=== PATIENT | male | born 1965 ===

== ENCOUNTER 2019-03-09 01:00 | Inpatient (IN) | payer OTHER ==
[2019-03-09 04:52] VITALS: BMI 43.8
[2019-03-09 05:40] LABS: ABG ALLEN TEST POS; ARTERIAL BLOOD GAS HCO3 18.9 mmol/L (21-28); ARTERIAL BLOOD GAS O2 SAT 99.3 % (95-98); ARTERIAL BLOOD GAS PCO2 35 mm/Hg (35-45); ARTERIAL BLOOD GAS PH 7.31 (7.35-7.45); ARTERIAL BLOOD GAS PO2 129 mm/Hg (80-100); ARTERIAL BLOOD GAS TCO2 18.7 mmol/L (22-28)
[2019-03-09 07:45] LABS: BASO # 0.1 K/uL (0.0-0.2); BASO % 1.8 % (0.0-2.0); EOS # 0.6 K/uL (0.0-0.7); EOS % 7.2 % (0.0-4.0); LYMPH # 1.5 K/uL (1.0-4.3); LYMPH % 18.5 % (20.0-40.0); MEAN CELL VOLUME 84.2 fL (80.0-94.0); MEAN CORPUSCULAR HEMOGLOBIN 27.4 pg (27.0-31.0); MEAN CORPUSCULAR HGB CONC 32.5 g/dL (33.0-37.0); MEAN PLATELET VOLUME 7.3 fL (7.2-11.7); MONO # 0.7 K/uL (0.0-0.8); MONO % 8.6 % (0.0-10.0); NEUT # 5.2 K/uL (1.8-7.0); NEUT % 63.9 % (50.0-75.0); NRBC % 0.1 % (0.0-2.0); RBC 2.38 Mil/uL (4.40-5.90); RED CELL DISTRIBUTION WIDTH 15.5 % (11.5-14.5); WHITE BLOOD COUNT 8.1 K/uL (4.8-10.8)
[2019-03-09 07:46] LABS: HEMOGLOBIN 6.5 g/dL (12.0-18.0)
[2019-03-09 08:08] LABS: INR 1.1
[2019-03-09] MEDS ORDERED: Dextrose 50% SYRINGE Inj (50 ml) IV PRN (08:35)
[2019-03-09] MEDS ORDERED: Glucagon Recombinant 1 mg Inj IM PRN (08:35)
--- NOTE | 2019-03-09 08:40 | CP.PCM.HP ---
History of Present Illness - History of Present Illness History of Present Illness: HOSPITALIST SERVICE 53M PMHx of ESRD, HTN, DM, Depression, Anxiety, presents with a 4 day Hx of Lethargy, weakness and dizziness. Pt is unable to clearly express his symptoms as he is with AMS at this time. Pt states it began gradually and worsened today. He has a L arm AVF but has not received dialysis yet. 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 He states he was taking all his prescribed medica tions as instructed and follows up regularly. Pt denies taking any new medications or any additional doses, came in last night because of worsening symptoms. Pt says he had a previous episode of these symptoms about 2 years ago in Oct, where he was found to have anemia and was transfused 4u, had a colonoscopy, was not found to have any active bleeding, anemia was attributed to his plavix and pletal so he was taken off these medications. ROS: Pos+ Lethargy, Weakness, Dizziness, polypharmacy, ESRD, recent travel/flight, confusion, AMS Neg- CP, SOB, FC, NV, blood in urine/stool, bruising, palpitations, syncope, memory loss, falls/trauma, medication changes PMHx: ESRD, HTN, DM, Depression, Anxiety PSx: AVF L arm FH: Mom DM SocHx: denies ETOH, Drugs, Smoking Allergies: penicillin Home Rx: wellbutrin 300 daily seroquel 300 bid klonopin 2 tid restril 30 hs synthroid 112 cardizem 120 norflex fenofib 160 lasix 80 daily humilin/Lantus PEG 3350 Vit D 50,000 q7 Neurontin 300 Losartan 100 Glimeperide Review of Systems - Review of Systems All systems: reviewed and no additional remarkable complaints except (as per HPI) Meds Allergies/Adverse Reactions: Allergies Allergy/AdvReac Type Severity Reaction Status Date / Time Penicillins Allergy Verified 03/09/19 04:52 Physical Exam - Constitutional Appears: Confused - Head Exam Head Exam: ATRAUMATIC, NORMAL INSPECTION - Eye Exam Eye Exam: EOMI, Normal appearance. absent: Scleral icterus Pupil Exam: NORMAL ACCOMODATION, PERRL - ENT Exam ENT Exam: Mucous Membranes Moist Additional comments: large tongue large neck diameter - Neck Exam Neck exam: Negative for: Lymphadenopathy - Respiratory Exam Respiratory Exam: Clear to Auscultation Bilateral. absent: Rales, Wheezes - Cardiovascular Exam Cardiovascular Exam: +S1, +S2 - GI/Abdominal Exam GI & Abdominal Exam: Soft. absent: Tenderness (large obese) - Extremities Exam Extremities exam: Positive for: pedal edema (+1), pedal pulses present - Neurological Exam Neurological exam: Alert, CN II-XII Intact, Oriented x3 - Psychiatric Exam Psychiatric exam: Normal Affect, Normal Mood - Skin Skin Exam: Normal Color, Warm Results - Vital Signs Recent Vital Signs: Last Vital Signs Temp Pulse 79 03/09/19 04:07 Resp BP Pulse Ox - Labs Result Diagrams: 03/09/19 04:40 03/09/19 04:40 Labs: Laboratory Results - last 24 hr 03/09/19 03/09/19 03/09/19 04:40 04:44 05:27 WBC 8.1 RBC 2.38 L Hgb 6.5 L* Hct 20.1 L MCV 84.2 MCH 27.4 MCHC 32.5 L RDW 15.5 H Plt Count 328 MPV 7.3 Neut % (Auto) 63.9 Lymph % (Auto) 18.5 L [place] % (Auto) 8.6 Eos % (Auto) 7.2 H Baso % (Auto) 1.8 Neut # (Auto) 5.2 Lymph # (Auto) 1.5 [place] # (Auto) 0.7 Eos # (Auto) 0.6 Baso # (Auto) 0.1 PT 12.0 INR 1.1 APTT 36.0 H Puncture Site pCO2 pO2 HCO3 ABG pH ABG Total CO2 ABG O2 Saturation ABG Base Excess Vipul Test ABG Potassium A-a O2 Difference Respiratory Index Sodium Chloride Glucose Lactate Mechanical Rate FiO2 Arterial Blood Potassium Stool Occult Blood Blood Type O POSITIVE Antibody Screen Negative 03/09/19 03/09/19 05:30 07:59 WBC RBC Hgb Hct MCV MCH MCHC RDW Plt Count MPV Neut % (Auto) Lymph % (Auto) [place] % (Auto) Eos % (Auto) Baso % (Auto) Neut # (Auto) Lymph # (Auto) [place] # (Auto) Eos # (Auto) Baso # (Auto) PT INR APTT Puncture Site Rr pCO2 35 pO2 129 H HCO3 18.9 L ABG pH 7.31 L ABG Total CO2 18.7 L ABG O2 Saturation 99.3 H ABG Base Excess -7.8 L Vipul Test Pos ABG Potassium 3.0 L A-a O2 Difference 112.0 Respiratory Index 0.9 Sodium 143.0 Chloride 119.0 H Glucose 88 Lactate 0.3 L Mechanical Rate 12 FiO2 40.0 Arterial Blood Potassium 3.0 L Stool Occult Blood Negative Blood Type Antibody Screen Assessment & Plan - Assessment and Plan (Free Text) Assessment: 53M admitted for acute anemia and lethargy Plan: Symptomatic Anemia 2u PRBCs to be transfused Hg 6.5 f/u CBC Dizziness/Lethargy -f/u CT head -anemia possible cause, transfusin 2 u ESRD Acute on Chronic -Dr Cota consulted Nephro no emergent HD continue with transfusions give lasix 40 at start, IVP Vit D, Procrit, fenofib, fergon f/u electrolytes and iron studies DM -ISS Mod -accuchecks achs -holding home humulin/lantus HTN -Lasix 40 IVP with transfusion -Cardizem 120 po -holding home losartan -monitor Hypothyroidsism -synthroid 112 daily -f/u tsh Obesity -renal diet Neurpathy -gabapentin 100 daily Depression -seroquel -wellbutrin -restoril - holding klonopin PPx -Hep 5000u q12 -Renal Diabetic Diet CK PGY1 d/w Dr Moreno
[2019-03-09] MEDS ORDERED: Ergocalciferol 50,000 Intl Units Cap PO SCH (09:30)
[2019-03-09] MEDS ORDERED: Epoetin Alfa 10,000 unit/ml Dialysis SC SCH (09:30)
[2019-03-09] MEDS ORDERED: POLYETHYLENE GLYCOL 3350 17 GM/Dose PACKET PO SCH (10:00)
[2019-03-09] MEDS ORDERED: Pantoprazole 40 mg EC Tab PO SCH (10:00)
[2019-03-09] MEDS ORDERED: buPROPion 150 mg/24 Hours XL Tab PO SCH (10:00)
--- NOTE | 2019-03-09 10:31 | CT ---
Date of service: 03/09/2019 PROCEDURE: CT HEAD WITHOUT CONTRAST. HISTORY: AMS COMPARISON: TECHNIQUE: Axial computed tomography images were obtained through the head/brain without intravenous contrast. Radiation dose: Total exam DLP = 1160.58 mGy-cm. This CT exam was performed using one or more of the following dose reduction techniques: Automated exposure control, adjustment of the mA and/or kV according to patient size, and/or use of iterative reconstruction technique. FINDINGS: HEMORRHAGE: No intracranial hemorrhage. BRAIN: Cornelius-white matter differentiation is preserved. There is no mass, mass effect or abnormal extra-axial fluid collection. There is no territorial infarction. The midline sagittal structures are normal. VENTRICLES: There is mild age advanced global parenchymal volume loss and proportionate enlargement of the ventricles and cortical sulci. CALVARIUM: There is no calvarial fracture or extracranial soft tissue swelling. PARANASAL SINUSES: There is moderate polypoid mucosal thickening in the left maxillary sinus with aerosolized secretions. There is mild scattered mucoperiosteal thickening in the ethmoid air cells and mild polypoid mucosal thickening in the right maxillary and left sphenoid sinus. MASTOID AIR CELLS: Predominantly clear. OTHER FINDINGS: None. IMPRESSION: No acute intracranial abnormality. Chronic maxillary, sphenoid and ethmoid sinusitis, worse in the left maxillary sinus. Aerosolized secretions in the left maxillary sinus may represent superimposed acute sinusitis in the appropriate clinical setting.
--- NOTE | 2019-03-09 10:35 | RAD ---
Date of service: 03/09/2019 PROCEDURE: CHEST RADIOGRAPH, 1 VIEW HISTORY: r/o pna COMPARISON: None FINDINGS: LUNGS: The right lung is clear. There is opacification of the left lower lobe. PLEURA: No pneumothorax or right pleural effusion. CARDIOVASCULAR: The cardiac silhouette is not well evaluated due to opacification in the left lower lobe. No aortic atherosclerotic calcifications present. OSSEOUS STRUCTURES: Within normal limits for the patient's age. VISUALIZED UPPER ABDOMEN: Normal. OTHER FINDINGS: None. IMPRESSION: Left lower lobe opacity may represent effusion and/or pneumonia. Follow-up after medical management is recommended to ensure complete resolution.
[2019-03-09 11:05] LABS: ARTERIAL BLOOD GAS HCO3 21.2 mmol/L (21-28); ARTERIAL BLOOD GAS PCO2 34 mm/Hg (35-45); ARTERIAL BLOOD GAS PH 7.37 (7.35-7.45); ARTERIAL BLOOD GAS PO2 183 mm/Hg (80-100); ARTERIAL BLOOD GAS TCO2 20.7 mmol/L (22-28)
[2019-03-09 11:06] LABS: ABG ALLEN TEST POS; ARTERIAL BLOOD GAS FIO2 40 %; ARTERIAL BLOOD GAS O2 SAT 98.6 % (95-98)
[2019-03-09 11:17] LABS: BLOOD UREA NITROGEN 64 mg/dL (9-20); GFR NON-AFRICAN AMERICAN 12
[2019-03-09 11:18] LABS: ALB/GLOB RATIO 1.1 (1.0-2.1); ALBUMIN 3.4 g/dL (3.5-5.0); ALT/SGPT 30 U/L (21-72); AST/SGOT 35 U/L (17-59); B-TYPE NATRIURETIC PEPTIDE 394 pg/mL (0-900); CALCIUM 8.9 mg/dl (8.6-10.4)
--- NOTE | 2019-03-09 11:23 | CP.PCM.CON ---
History of Present Illness - History of Present Illness History of Present Illness: Nephrology Consultation Note: Assessment: Stable symptomatic anemia Diabetic chronic Kidney Disease (E11.22) Hypertensive Chronic Kidney Disease (I12.9) Chronic Kidney Disease (N18.5) Stage 5 Anemia (D64.9), acidosis, morbid obesity depression/anxiety active smoker Plan No acute need for renal replacement therapy at this time. pt is aware that he will need dialysis initiation in near future. Hypertension control with meds as ordered. Maintain hemodynamics stable. Avoid hypotension. Patient on losartahn, resume at d/c Monitor Input/Output, daily weights and renal function with basic metabolic panel started iron, MVI and epogen. 2 unit PRBC today as per primary team added sodium bicarb continue with lasix and additional IV lasix 40 mg with blood transfusion pt says he has flight to back tonight and appt with his satellite tv installer on Thu if no obvious source of blood loss and Hb stable/better after PRBC, may consider for d/c and he will be stable from renal perspective. Pt has early follow up scheduled with his doctor in [place]. Dose meds/antibiotics for reduced GFR. Avoid fleets enema/magnesium based laxatives. Avoid nephrotoxins/NSAIDs/ iodinated contrast (unless needed emergently) Glycemic control Further work up/management as per primary team Thanks for allowing me to participate in care of your patient. Will follow patient with you. Please call if any Qs. had d/w team Dr Bony Cota Office: [phone] Chief Complaint; tiredness Reason for consult: CKD 5 HPI: Pt is a 53 M with hx of diabetes Mellitus ( years), hypertension (years) morbid obesity depression/anxiety active smoker and CKD 5 with baseline cr 5 and s/p AVF few months ago, closely f/up with nephrology in [place], travelling here for vacation presented with complaints of fatigue and tiredness, found to have anemia. Denies OTC/herbal meds or NSAIDs No recent iodinated contrast exposure. No obvious episodes of low BP. denies blood loss no uremic symptoms ROS: Cardiovascular: No chest pain. Pulmonary: No shortness of breath Gastrointestinal: denies abdominal pain No nausea. No vomiting. Genitourinary: No pain while urinating. Denies blood in urine. All other negative except as mentioned in HPI Physical Examination: General Appearance: Comfortable, in no acute respiratory distress, co-operative . obese morbidly Vitals reviewed and noted as below Head; Atraumatic, normocephalic ENT: no ulcers no thrush. Tongue is midline. Oropharynx: no rash or ulcers. EYES: Pupils are equal, round and reactive to light accommodation. Eye muscles and extraocular movement intact. Sclera is anicteric. Neck; supple no lymphadenopathy, no thyromegaly or bruit Lungs: Normal respiratory rate/effort. Breath sounds bilateral equal and clear Heart: Normal rate. s1s2 normal. No rub or gallop. Extremities: 2+ edema. No varicose veins Neurological: Patient is alert, awake and oriented to person, place and time. No focal deficit. Strength bilateral appropriate and equal Skin: Warm and dry. Normal turgor. No rash. Palpitation: Normal elasticity for age Abdomen: Abdomen is soft. Bowel sounds +. There is no abdominal tenderness, no guarding/rigidity no organomegaly Psych: normal insight and normal affect/mood MSK: no joint tenderness or swelling. Digits and nails normal, no deformity : kidney or bladder not palpable left AVF with thrill and bruit Labs/imaging reviewed. Past medical history, past surgical history, family history, social history, allergy reviewed and noted as below Family hx: no hx of CKD. Rest non-contributory Meds Allergies/Adverse Reactions: Allergies Allergy/AdvReac Type Severity Reaction Status Date / Time Penicillins Allergy Verified 03/09/19 04:52 - Medications Medications: Current Medications Bupropion HCl (Wellbutrin Xl) 300 mg PO DAILY NIKI Dextrose (Dextrose 50% Inj) 0 ml IV STAT PRN; Protocol PRN Reason: Hypoglycemia Protocol Dextrose (Glutose 15) 0 gm PO ONCE PRN; Protocol PRN Reason: Hypoglycemia Protocol Diltiazem HCl (Cardizem) 120 mg PO DAILY NIKI Epoetin Poli (Procrit) 10,000 unit SC MWF NIKI Ergocalciferol (Drisdol 50,000 Intl Units Cap) 1 cap PO Q7D NIKI Fenofibrate (Tricor) 145 mg PO QPM NIKI Ferrous Gluconate (Fergon) 324 mg PO TID NIKI Furosemide (Lasix) 40 mg PO DAILY NIKI Glucagon (Glucagen Diagnostic Kit) 0 mg IM STAT PRN; Protocol PRN Reason: Hypoglycemia Protocol Heparin Sodium (Porcine) (Heparin) 5,000 units SC Q12 [facility] Dextrose (Dextrose 5% In Water 1000 Ml) 1,000 mls @ 0 mls/hr IV .Q0M PRN; Pro tocol PRN Reason: Hypoglycemia Protocol Insulin Human Regular (Novolin R) 0 unit SC ACHS NIKI; Protocol Levothyroxine Sodium (Synthroid) 112 mcg PO DAILY@0630 NIKI Pantoprazole Sodium (Protonix Ec Tab) 40 mg PO DAILY [facility] Polyethylene Glycol (Miralax) 17 gm PO DAILY NIKI Quetiapine Fumarate (Seroquel) 50 mg PO BID NIKI Sodium Bicarbonate (Sodium Bicarbonate Tab) 650 mg PO BID NIKI Temazepam (Restoril) 30 mg PO HS PRN PRN Reason: Insomnia Vitamin B Complex/Vit C/Folic Acid (Nephro-Nelly) 1 tab PO 0800 [facility] Results - Vital Signs Recent Vital Signs: Last Vital Signs Temp 97.2 F L 03/09/19 10:20 Pulse 83 03/09/19 10:20 Resp 16 03/09/19 10:20 BP 153/73 H 03/09/19 10:20 Pulse Ox 100 03/09/19 10:20 - Labs Result Diagrams: 03/09/19 04:40 Labs: Laboratory Results - last 24 hr 03/09/19 03/09/19 03/09/19 04:10 04:40 04:44 WBC 8.1 RBC 2.38 L Hgb 6.5 L* Hct 20.1 L MCV 84.2 MCH 27.4 MCHC 32.5 L RDW 15.5 H Plt Count 328 MPV 7.3 Neut % (Auto) 63.9 Lymph % (Auto) 18.5 L [place] % (Auto) 8.6 Eos % (Auto) 7.2 H Baso % (Auto) 1.8 Neut # (Auto) 5.2 Lymph # (Auto) 1.5 [place] # (Auto) 0.7 Eos # (Auto) 0.6 Baso # (Auto) 0.1 PT 12.0 INR 1.1 APTT 36.0 H Puncture Site Rr pCO2 34 L pO2 183 H HCO3 21.2 ABG pH 7.37 ABG Total CO2 20.7 L ABG O2 Saturation 98.6 H ABG Base Excess Vipul Test Pos ABG Potassium A-a O2 Difference 60.0 Respiratory Index Sodium Chloride Glucose Lactate Mechanical Rate 12 FiO2 40 Inspiratory BiPAP 12 Expiratory BiPAP 6 Arterial Blood Potassium Stool Occult Blood Blood Type Antibody Screen 03/09/19 03/09/19 03/09/19 05:27 05:30 07:59 WBC RBC Hgb Hct MCV MCH MCHC RDW Plt Count MPV Neut % (Auto) Lymph % (Auto) [place] % (Auto) Eos % (Auto) Baso % (Auto) Neut # (Auto) Lymph # (Auto) [place] # (Auto) Eos # (Auto) Baso # (Auto) PT INR APTT Puncture Site Rr pCO2 35 pO2 129 H HCO3 18.9 L ABG pH 7.31 L ABG Total CO2 18.7 L ABG O2 Saturation 99.3 H ABG Base Excess -7.8 L Vipul Test Pos ABG Potassium 3.0 L A-a O2 Difference 112.0 Respiratory Index 0.9 Sodium 143.0 Chloride 119.0 H Glucose 88 Lactate 0.3 L Mechanical Rate 12 FiO2 40.0 Inspiratory BiPAP Expiratory BiPAP Arterial Blood Potassium 3.0 L Stool Occult Blood Negative Blood Type O POSITIVE Antibody Screen Negative
[2019-03-09 11:37] LABS: URINE CLARITY Clear (Clear); URINE COLOR STRAW (YELLOW); URINE GLUCOSE (UA) 2+ mg/dL (Normal)
[2019-03-09 11:38] LABS: URINE BILIRUBIN NEGATIVE (NEGATIVE); URINE BLOOD NEGATIVE (NEGATIVE); URINE LEUKOCYTE ESTERASE NEGATIVE Leu/uL (Negative); URINE PROTEIN 2+ mg/dL (NEGATIVE); URINE UROBILINOGEN Normal mg/dL (0.2-1.0)
[2019-03-09 12:01] LABS: BARBITURATES, UR NEGATIVE (NEGATIVE); BENZODIAZEPINES, UR NEGATIVE (NEGATIVE); OPIATES, UR NEGATIVE (NEGATIVE); PHENCYCLIDINE, UR NEGATIVE (NEGATIVE)
[2019-03-09] MEDS: (Novolin R) Insulin Human Regular 100 units/ml vial SC SCH ×3 (14:03→22:03)
[2019-03-09 15:34] VITALS: RESP 20
--- NOTE | 2019-03-09 16:16 | RAD ---
Date of service: 03/09/2019 HISTORY: CHEST PAIN COMPARISON: No prior. TECHNIQUE: 1 view obtained. FINDINGS: LUNGS: Opacity at left base may reflect pneumonia or pleural effusion. There is no silhouetting of left hemidiaphragm. PLEURA: Possible small left pleural effusion. No right pleural effusion. No pneumothorax. CARDIOVASCULAR: No aortic atherosclerotic calcification present. Cardiomegaly. No pulmonary vascular congestion. OSSEOUS STRUCTURES: No significant abnormalities. VISUALIZED UPPER ABDOMEN: Normal. OTHER FINDINGS: None. IMPRESSION: Opacity at left base may reflect pleural effusion and/or pneumonia. Follow-up advised. Cardiomegaly.
[2019-03-09 17:06] LABS: HEMOGLOBIN 6.6 g/dL (12.0-18.0); MEAN CELL VOLUME 85.7 fL (80.0-94.0); MEAN CORPUSCULAR HEMOGLOBIN 27.8 pg (27.0-31.0); MEAN CORPUSCULAR HGB CONC 32.4 g/dL (33.0-37.0); MEAN PLATELET VOLUME 7.3 fL (7.2-11.7); RBC 2.37 Mil/uL (4.40-5.90); RED CELL DISTRIBUTION WIDTH 14.7 % (11.5-14.5); WHITE BLOOD COUNT 7.5 K/uL (4.8-10.8)
[2019-03-10] MEDS ORDERED: Levothyroxine 112 MCG TAB PO SCH (06:30)
[2019-03-10 07:40] LABS: BASO # 0.1 K/uL (0.0-0.2); BASO % 1.5 % (0.0-2.0); EOS # 0.6 K/uL (0.0-0.7); EOS % 7.8 % (0.0-4.0); LYMPH # 1.4 K/uL (1.0-4.3); LYMPH % 17.8 % (20.0-40.0); MEAN CELL VOLUME 85.6 fL (80.0-94.0); MEAN CORPUSCULAR HEMOGLOBIN 28.8 pg (27.0-31.0); MEAN CORPUSCULAR HGB CONC 33.6 g/dL (33.0-37.0); MEAN PLATELET VOLUME 7.4 fL (7.2-11.7); MONO # 0.7 K/uL (0.0-0.8); MONO % 9.7 % (0.0-10.0); NEUT # 4.9 K/uL (1.8-7.0); NEUT % 63.2 % (50.0-75.0); RBC 2.42 Mil/uL (4.40-5.90); WHITE BLOOD COUNT 7.7 K/uL (4.8-10.8)
[2019-03-10] MEDS: (Novolin R) Insulin Human Regular 100 units/ml vial SC SCH ×2 (07:51→11:40)
[2019-03-10] MEDS ORDERED: Multivitamin Vitamin B Complex (Nephro-Vite) Tab PO SCH (08:00)
[2019-03-10 08:17] LABS: ALB/GLOB RATIO 1.1 (1.0-2.1); ALBUMIN 3.3 g/dL (3.5-5.0); CALCIUM 8.7 mg/dl (8.6-10.4)
[2019-03-10 08:45] VITALS: BP 149/77; PULSE 94; TEMP 97.9; O2SAT 98
[2019-03-10] MEDS ORDERED: diltiaZEM 120 mg/24 Hours CD Cap PO SCH (10:00)
--- NOTE | 2019-03-10 12:28 | CP.PCM.DIS ---
<Salbador Aponte - Last Filed: 03/10/19 12:28> Provider - Provider Date of Admission: 03/09/19 06:00 Attending physician: Annie Tucker MD Consults: 03/09/19 08:34 Nephrology Consult Routine Comment: Consulting Provider: Bony Cota Consulting Physician: Bony Cota Reason for Consult: ESRD Time Spent in preparation of Discharge (in minutes): 45 Diagnosis - Discharge Diagnosis (1) Anemia Status: Acute (2) CKD (chronic kidney disease) stage 5, GFR less than 15 ml/min Status: Chronic (3) HTN (hypertension) Status: Chronic (4) Lethargy Status: Resolved (5) Diabetes Status: Chronic Hospital Course - Lab Results Lab Results: Most Recent Lab Values WBC 7.7 K/uL (4.8-10.8) 03/10/19 07:25 RBC 2.42 Mil/uL (4.40-5.90) L 03/10/19 07:25 Hgb 7.0 g/dL (12.0-18.0) L 03/10/19 07:25 Hct 20.7 % (35.0-51.0) L 03/10/19 07:25 MCV 85.6 fL (80.0-94.0) 03/10/19 07:25 MCH 28.8 pg (27.0-31.0) 03/10/19 07:25 MCHC 33.6 g/dL (33.0-37.0) 03/10/19 07:25 RDW 15.0 % (11.5-14.5) H 03/10/19 07:25 Plt Count 358 K/uL (130-400) 03/10/19 07:25 MPV 7.4 fL (7.2-11.7) 03/10/19 07:25 Neut % (Auto) 63.2 % (50.0-75.0) 03/10/19 07:25 Lymph % (Auto) 17.8 % (20.0-40.0) L 03/10/19 07:25 [place] % (Auto) 9.7 % (0.0-10.0) 03/10/19 07:25 Eos % (Auto) 7.8 % (0.0-4.0) H 03/10/19 07:25 Baso % (Auto) 1.5 % (0.0-2.0) 03/10/19 07:25 Neut # (Auto) 4.9 K/uL (1.8-7.0) 03/10/19 07:25 Lymph # (Auto) 1.4 K/uL (1.0-4.3) 03/10/19 07:25 [place] # (Auto) 0.7 K/uL (0.0-0.8) 03/10/19 07:25 Eos # (Auto) 0.6 K/uL (0.0-0.7) 03/10/19 07:25 Baso # (Auto) 0.1 K/uL (0.0-0.2) 03/10/19 07:25 PT 12.0 SECONDS (9.7-12.2) 03/09/19 04:44 INR 1.1 03/09/19 04:44 APTT 36.0 SECONDS (21-34) H 03/09/19 04:44 Puncture Site Rr 03/09/19 05:30 pCO2 35 mm/Hg (35-45) 03/09/19 05:30 pO2 129 mm/Hg (80-100) H 03/09/19 05:30 HCO3 18.9 mmol/L (21-28) L 03/09/19 05:30 ABG pH 7.31 (7.35-7.45) L 03/09/19 05:30 ABG Total CO2 18.7 mmol/L (22-28) L 03/09/19 05:30 ABG O2 Saturation 99.3 % (95-98) H 03/09/19 05:30 ABG Base Excess -7.8 mmol/L (-2.0-3.0) L 03/09/19 05:30 Vipul Test Pos 03/09/19 05:30 ABG Potassium 3.0 mmol/L (3.6-5.2) L 03/09/19 05:30 A-a O2 Difference 112.0 mm/Hg 03/09/19 05:30 Respiratory Index 0.9 03/09/19 05:30 Sodium 143.0 mmol/l (132-148) 03/09/19 05:30 Chloride 119.0 mmol/L (98-107) H 03/09/19 05:30 Glucose 88 mg/dl (75-110) 03/09/19 05:30 Lactate 0.3 mmol/L (0.7-2.1) L 03/09/19 05:30 Mechanical Rate 12 03/09/19 05:30 FiO2 40.0 % 03/09/19 05:30 Inspiratory BiPAP 12 03/09/19 04:10 Expiratory BiPAP 6 03/09/19 04:10 Sodium 141 mmol/L (132-148) 03/10/19 07:25 Potassium 4.2 mmol/L (3.6-5.2) 03/10/19 07:25 Chloride 110 mmol/L (98-107) H 03/10/19 07:25 Carbon Dioxide 21 mmol/L (22-30) L 03/10/19 07:25 Anion Gap 15 (10-20) 03/10/19 07:25 BUN 57 mg/dL (9-20) H 03/10/19 07:25 Creatinine 5.5 mg/dL (0.8-1.5) H 03/10/19 07:25 Est GFR ( Amer) 13 03/10/19 07:25 Est GFR (Non-Af Amer) 11 03/10/19 07:25 POC Glucose (mg/dL) 239 mg/dL (65-110) H 03/10/19 11:35 Random Glucose 132 mg/dL (75-110) H D 03/10/19 07:25 Calcium 8.7 mg/dl (8.6-10.4) 03/10/19 07:25 Phosphorus 5.3 mg/dL (2.5-4.5) H 03/10/19 07:25 Magnesium 2.5 mg/dL (1.6-2.3) H 03/10/19 07:25 % Saturation 21 (20-55) 03/10/19 07:25 Total Bilirubin 0.1 mg/dL (0.2-1.3) L 03/10/19 07:25 AST 27 U/L (17-59) 03/10/19 07:25 ALT 31 U/L (21-72) 03/10/19 07:25 Alkaline Phosphatase 43 U/L (38-126) 03/10/19 07:25 Ammonia 19 umol/L (9-33) 03/09/19 04:40 Troponin I 0.0210 ng/mL (0.00-0.120) 03/09/19 04:40 NT-Pro-B Natriuret Pep 394 pg/mL (0-900) 03/09/19 04:40 Total Protein 6.3 g/dL (6.3-8.3) 03/10/19 07:25 Albumin 3.3 g/dL (3.5-5.0) L 03/10/19 07:25 Globulin 3.0 gm/dL (2.2-3.9) 03/10/19 07:25 Albumin/Globulin Ratio 1.1 (1.0-2.1) 03/10/19 07:25 25-OH Vitamin D Total 18.7 NG/ML (30.0-100.0) L 03/10/19 07:25 TSH 3rd Generation 2.62 mIU/L (0.46-4.68) 03/10/19 07:25 Arterial Blood Potassium 3.0 mmol/L (3.6-5.2) L 03/09/19 05:30 Urine Color Straw (YELLOW) 03/09/19 09:51 Urine Clarity Clear (Clear) 03/09/19 09:51 Urine pH 7.0 (5.0-8.0) 03/09/19 09:51 Ur Specific [place] 1.009 (1.003-1.030) 03/09/19 09:51 Urine Protein 2+ mg/dL (NEGATIVE) H 03/09/19 09:51 Urine Glucose (UA) 2+ mg/dL (Normal) H 03/09/19 09:51 Urine Ketones Negative mg/dL (NEGATIVE) 03/09/19 09:51 Urine Blood Negative (NEGATIVE) 03/09/19 09:51 Urine Nitrate Negative (NEGATIVE) 03/09/19 09:51 Urine Bilirubin Negative (NEGATIVE) 03/09/19 09:51 Urine Urobilinogen Normal mg/dL (0.2-1.0) 03/09/19 09:51 Ur Leukocyte Esterase Negative Nguyen/uL (Negative) 03/09/19 09:51 Urine WBC (Auto) < 1 /hpf (0-5) 03/09/19 09:51 Urine RBC (Auto) < 1 /hpf (0-3) 03/09/19 09:51 Stool Occult Blood Negative (NEGATIVE) 03/09/19 07:59 Urine Opiates Screen Negative (NEGATIVE) 03/09/19 09:51 Urine Methadone Screen Negative (NEGATIVE) 03/09/19 09:51 Ur Barbiturates Screen Negative (NEGATIVE) 03/09/19 09:51 Ur Phencyclidine Scrn Negative (NEGATIVE) 03/09/19 09:51 Ur Amphetamines Screen Negative (NEGATIVE) 03/09/19 09:51 U Benzodiazepines Scrn Negative (NEGATIVE) 03/09/19 09:51 U Oth Cocaine Metabols Negative (NEGATIVE) 03/09/19 09:51 U Cannabinoids Screen Negative (NEGATIVE) 03/09/19 09:51 Alcohol, Quantitative < 10 mg/dl (0-10) 03/09/19 04:40 Blood Type O POSITIVE 03/09/19 05:27 Antibody Screen Negative 03/09/19 05:27 - Hospital Course Hospital Course: Pt was admitted to hospitalist service, found to be weak and lethargic, Nephro was consulted, emergent hemodialysis was not recommended. Hg was found to be 6.5 on admission, aft 2u of PRBCs were transfused Hg was 7.0 next morning. Pt was to be transfused one more unit of PRBCs however signed out AMA after speaking with office of his PMD in [place], risks were explained, patient still wants to leave. take care and be well [facility] PGY1 Discharge Exam - Head Exam Head Exam: ATRAUMATIC, NORMAL INSPECTION - Additional Findings Additional findings: - Constitutional Appears: Confused - Head Exam Head Exam: ATRAUMATIC, NORMAL INSPECTION - Eye Exam Eye Exam: EOMI, Normal appearance. absent: Scleral icterus Pupil Exam: NORMAL ACCOMODATION, PERRL - ENT Exam ENT Exam: Mucous Membranes Moist Additional comments: large tongue large neck diameter - Neck Exam Neck exam: Negative for: Lymphadenopathy - Respiratory Exam Respiratory Exam: Clear to Auscultation Bilateral. absent: Rales, Wheezes - Cardiovascular Exam Cardiovascular Exam: +S1, +S2 - GI/Abdominal Exam GI & Abdominal Exam: Soft. absent: Tenderness (large obese) - Extremities Exam Extremities exam: Positive for: pedal edema (+1), pedal pulses present - Neurological Exam Neurological exam: Alert, CN II-XII Intact, Oriented x3 - Psychiatric Exam Psychiatric exam: Normal Affect, Normal Mood - Skin Skin Exam: Normal Color, Warm Discharge Plan - Follow Up Plan Condition: GOOD Disposition: HOME/ ROUTINE Instructions: Kidney Failure, Anemia of Chronic Disease, Chronic Kidney Disease (DC) Referrals: Bony Cota MD [Staff Provider] - <Annie Tucker - Last Filed: 03/10/19 18:47> Provider - Provider Date of Admission: 03/09/19 06:00 Attending physician: Annie Tucker MD Consults: 03/09/19 08:34 Nephrology Consult Routine Comment: Consulting Provider: Bony Cota Consulting Physician: Bony Cota Reason for Consult: ESRD Hospital Course - Lab Results Lab Results: Most Recent Lab Values WBC 7.7 K/uL (4.8-10.8) 03/10/19 07:25 RBC 2.42 Mil/uL (4.40-5.90) L 03/10/19 07:25 Hgb 7.0 g/dL (12.0-18.0) L 03/10/19 07:25 Hct 20.7 % (35.0-51.0) L 03/10/19 07:25 MCV 85.6 fL (80.0-94.0) 03/10/19 07:25 MCH 28.8 pg (27.0-31.0) 03/10/19 07:25 MCHC 33.6 g/dL (33.0-37.0) 03/10/19 07:25 RDW 15.0 % (11.5-14.5) H 03/10/19 07:25 Plt Count 358 K/uL (130-400) 03/10/19 07:25 MPV 7.4 fL (7.2-11.7) 03/10/19 07:25 Neut % (Auto) 63.2 % (50.0-75.0) 03/10/19 07:25 Lymph % (Auto) 17.8 % (20.0-40.0) L 03/10/19 07:25 [place] % (Auto) 9.7 % (0.0-10.0) 03/10/19 07:25 Eos % (Auto) 7.8 % (0.0-4.0) H 03/10/19 07:25 Baso % (Auto) 1.5 % (0.0-2.0) 03/10/19 07:25 Neut # (Auto) 4.9 K/uL (1.8-7.0) 03/10/19 07:25 Lymph # (Auto) 1.4 K/uL (1.0-4.3) 03/10/19 07:25 [place] # (Auto) 0.7 K/uL (0.0-0.8) 03/10/19 07:25 Eos # (Auto) 0.6 K/uL (0.0-0.7) 03/10/19 07:25 Baso # (Auto) 0.1 K/uL (0.0-0.2) 03/10/19 07:25 PT 12.0 SECONDS (9.7-12.2) 03/09/19 04:44 INR 1.1 03/09/19 04:44 APTT 36.0 SECONDS (21-34) H 03/09/19 04:44 Puncture Site Rr 03/09/19 05:30 pCO2 35 mm/Hg (35-45) 03/09/19 05:30 pO2 129 mm/Hg (80-100) H 03/09/19 05:30 HCO3 18.9 mmol/L (21-28) L 03/09/19 05:30 ABG pH 7.31 (7.35-7.45) L 03/09/19 05:30 ABG Total CO2 18.7 mmol/L (22-28) L 03/09/19 05:30 ABG O2 Saturation 99.3 % (95-98) H 03/09/19 05:30 ABG Base Excess -7.8 mmol/L (-2.0-3.0) L 03/09/19 05:30 Vipul Test Pos 03/09/19 05:30 ABG Potassium 3.0 mmol/L (3.6-5.2) L 03/09/19 05:30 A-a O2 Difference 112.0 mm/Hg 03/09/19 05:30 Respiratory Index 0.9 03/09/19 05:30 Sodium 143.0 mmol/l (132-148) 03/09/19 05:30 Chloride 119.0 mmol/L (98-107) H 03/09/19 05:30 Glucose 88 mg/dl (75-110) 03/09/19 05:30 Lactate 0.3 mmol/L (0.7-2.1) L 03/09/19 05:30 Mechanical Rate 12 03/09/19 05:30 FiO2 40.0 % 03/09/19 05:30 Inspiratory BiPAP 12 03/09/19 04:10 Expiratory BiPAP 6 03/09/19 04:10 Sodium 141 mmol/L (132-148) 03/10/19 07:25 Potassium 4.2 mmol/L (3.6-5.2) 03/10/19 07:25 Chloride 110 mmol/L (98-107) H 03/10/19 07:25 Carbon Dioxide 21 mmol/L (22-30) L 03/10/19 07:25 Anion Gap 15 (10-20) 03/10/19 07:25 BUN 57 mg/dL (9-20) H 03/10/19 07:25 Creatinine 5.5 mg/dL (0.8-1.5) H 03/10/19 07:25 Est GFR ( Amer) 13 03/10/19 07:25 Est GFR (Non-Af Amer) 11 03/10/19 07:25 POC Glucose (mg/dL) 239 mg/dL (65-110) H 03/10/19 11:35 Random Glucose 132 mg/dL (75-110) H D 03/10/19 07:25 Calcium 8.7 mg/dl (8.6-10.4) 03/10/19 07:25 Phosphorus 5.3 mg/dL (2.5-4.5) H 03/10/19 07:25 Magnesium 2.5 mg/dL (1.6-2.3) H 03/10/19 07:25 % Saturation 21 (20-55) 03/10/19 07:25 Total Bilirubin 0.1 mg/dL (0.2-1.3) L 03/10/19 07:25 AST 27 U/L (17-59) 03/10/19 07:25 ALT 31 U/L (21-72) 03/10/19 07:25 Alkaline Phosphatase 43 U/L (38-126) 03/10/19 07:25 Ammonia 19 umol/L (9-33) 03/09/19 04:40 Troponin I 0.0210 ng/mL (0.00-0.120) 03/09/19 04:40 NT-Pro-B Natriuret Pep 394 pg/mL (0-900) 03/09/19 04:40 Total Protein 6.3 g/dL (6.3-8.3) 03/10/19 07:25 Albumin 3.3 g/dL (3.5-5.0) L 03/10/19 07:25 Globulin 3.0 gm/dL (2.2-3.9) 03/10/19 07:25 Albumin/Globulin Ratio 1.1 (1.0-2.1) 03/10/19 07:25 25-OH Vitamin D Total 18.7 NG/ML (30.0-100.0) L 03/10/19 07:25 TSH 3rd Generation 2.62 mIU/L (0.46-4.68) 03/10/19 07:25 Arterial Blood Potassium 3.0 mmol/L (3.6-5.2) L 03/09/19 05:30 Urine Color Straw (YELLOW) 03/09/19 09:51 Urine Clarity Clear (Clear) 03/09/19 09:51 Urine pH 7.0 (5.0-8.0) 03/09/19 09:51 Ur Specific [place] 1.009 (1.003-1.030) 03/09/19 09:51 Urine Protein 2+ mg/dL (NEGATIVE) H 03/09/19 09:51 Urine Glucose (UA) 2+ mg/dL (Normal) H 03/09/19 09:51 Urine Ketones Negative mg/dL (NEGATIVE) 03/09/19 09:51 Urine Blood Negative (NEGATIVE) 03/09/19 09:51 Urine Nitrate Negative (NEGATIVE) 03/09/19 09:51 Urine Bilirubin Negative (NEGATIVE) 03/09/19 09:51 Urine Urobilinogen Normal mg/dL (0.2-1.0) 03/09/19 09:51 Ur Leukocyte Esterase Negative [place]/uL (Negative) 03/09/19 09:51 Urine WBC (Auto) < 1 /hpf (0-5) 03/09/19 09:51 Urine RBC (Auto) < 1 /hpf (0-3) 03/09/19 09:51 Stool Occult Blood Negative (NEGATIVE) 03/09/19 07:59 Urine Opiates Screen Negative (NEGATIVE) 03/09/19 09:51 Urine Methadone Screen Negative (NEGATIVE) 03/09/19 09:51 Ur Barbiturates Screen Negative (NEGATIVE) 03/09/19 09:51 Ur Phencyclidine Scrn Negative (NEGATIVE) 03/09/19 09:51 Ur Amphetamines Screen Negative (NEGATIVE) 03/09/19 09:51 U Benzodiazepines Scrn Negative (NEGATIVE) 03/09/19 09:51 U Oth Cocaine Metabols Negative (NEGATIVE) 03/09/19 09:51 U Cannabinoids Screen Negative (NEGATIVE) 03/09/19 09:51 Alcohol, Quantitative < 10 mg/dl (0-10) 03/09/19 04:40 Blood Type O POSITIVE 03/09/19 05:27 Antibody Screen Negative 03/09/19 05:27 Attending/Attestation - Attestation I have personally seen and examined this patient.: Yes I have fully participated in the care of the patient.: Yes I have reviewed all pertinent clinical information, including history, physical exam and plan: Yes Notes (Text): seen and examined this morning.He was feeling better. Had two bags of PRBC last night. feeling good Hb 7.0. D/W Dr Cota . One more unit transfusion ordered. 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
== END 2019-03-10 14:01 | disposition home or self-care (01) | DRG 682 ==
LOC: C.ER 01:00 → C.9E 06:00 → C.5S 09:35
PROVIDERS: ADMIT Internal Medicine; ATTEND Internal Medicine
DX: I12.0 Hypertensive chronic kidney disease with stage 5 chronic kidney disease or end stage renal disease (principal); N18.6 End stage renal disease; E87.2 Acidosis; N18.5 Chronic kidney disease, stage 5; Z68.41 Body mass index [BMI] 40.0-44.9, adult; E66.01 Morbid (severe) obesity due to excess calories; E11.22 Type 2 diabetes mellitus with diabetic chronic kidney disease; F17.200 Nicotine dependence, unspecified, uncomplicated; F41.9 Anxiety disorder, unspecified; F32.9 Major depressive disorder, single episode, unspecified; D64.9 Anemia, unspecified; D63.1 Anemia in chronic kidney disease; Z99.2 Dependence on renal dialysis